=== PATIENT | female | born 1965 | race Caucasian/White ===

== ENCOUNTER 2016-12-06 14:31 | Inpatient (IN) | payer OTHER ==
[2016-12-06] MEDS ORDERED: IOPAMIDOL 370 (76%) IV.SOLN 150 ML IV ONE (14:32)
[2016-12-06] MEDS ORDERED: ONDANSETRON 4 MG/2ML 2 ML VIAL ONE (15:25)
[2016-12-06] MEDS ORDERED: LACTATED RINGERS 1,000 ML ONE (15:25)
[2016-12-06 15:48] LABS: ALB/GLOB RATIO 1.2 (>1.0); ALBUMIN 4.5 gm/dL (3.5-5.7)
[2016-12-06 15:49] LABS: ABSOLUTE NEUTROPHIL COUNT 9.4 K/mm3 (1.8-7.7); BASO % 0.2 % (0.2-1.0); EOS % 0.2 % (0.9-2.9); HEMATOCRIT 46.9 % (37.0-47.0); HEMOGLOBIN 13.9 gm/l (12.0-16.0); IMM NEUT # 0.1 K/mm3 (0-0.2); IMM NEUT% 1.1 % (0-1); LYMPH # 1.4 (1.0-4.8); LYMPH % 11.7 % (15-45); MEAN CELL VOLUME 87.5 fl (81.0-99.0); MEAN CORPUSCULAR HEMOGLOBIN 25.9 pg (27.0-31.0); MEAN CORPUSCULAR HGB CONC 29.6 g/dl (33.0-37.0); MEAN PLATELET VOLUME 11.8 fl (7.4-10.4); MONO # 1.1 (0.0-0.8); MONO % 9.1 % (4-12); NEUT % 77.7 % (43-75); PLATELET COUNT 153 K/mm3 (130-400); RED CELL DISTRIBUTION WIDTH 18.3 % (11.5-14.5)
--- NOTE | 2016-12-06 16:12 | CT ---
Exam: CT abdomen and pelvis with contrast COMPARISON: CT chest 07/17/2016, MRI 02/17/2016, CT chest 11/03/2015 INDICATION: Upper abdominal pain, nausea, vomiting and diarrhea for 2 to 3 days. TECHNIQUE: CT examination of the abdomen and pelvis was obtained following the administration of 125 mL Isovue-370 intravenous contrast. FINDINGS: Inflammatory changes are seen about the pancreas, compatible with acute pancreatitis. The pancreas enhances normally, and there is no main pancreatic ductal dilation. There is marked hepatic steatosis. Gallbladder is present. There is no intra or extra hepatic biliary ductal dilation. Bilateral adrenal masses are again appreciated, which were confirmed as adrenal adenomas on prior imaging. Spleen is normal in size. Kidneys are within normal limits. Fibroid uterus. There is no adnexal mass. There is no pelvic lymphadenopathy or fluid collection. There is no bowel obstruction or free air. Lung bases are clear. No worrisome lytic or blastic osseous lesion is identified. Post surgical changes related to prior lipoma resection are again noted within the posterior left chest wall. IMPRESSION: 1. Acute pancreatitis. No evidence of pancreatic necrosis. 2. Hepatic steatosis. 3. Fibroid uterus. 4. Adrenal adenomas. Report called to Dr. Head 1603 hours 12/06/2016.
[2016-12-06 16:44] LABS: PLATELET ESTIMATE NORMAL (NORMAL)
[2016-12-06 17:20] VITALS: BMI 40.5
[2016-12-06] MEDS ORDERED: HYDROMORPHONE HCL 1 MG/ML SYRINGE IV ONE (17:53)
[2016-12-06] MEDS ORDERED: BLISTEX LIPSTICK 1 EACH TP PRN (17:53)
[2016-12-06] MEDS ORDERED: SODIUM CHLORIDE 0.9% 100 ML IV PRN (17:53)
[2016-12-06] MEDS ORDERED: KETOROLAC TROMETHAMINE 15 MG/ML VIAL IV PRN (17:53)
[2016-12-06] MEDS ORDERED: MENTHOL/CETYLPYRD 1 EACH LOZENGE PO PRN (17:53)
[2016-12-06] MEDS ORDERED: INSULIN ASPART (DOSE) 100 UNITS/1 ML SUB-Q PRN (17:57)
[2016-12-06] MEDS ORDERED: ENOXAPARIN SODIUM 40 MG/0.4 ML SYRINGE SUB-Q SCH (18:00)
[2016-12-06] MEDS ORDERED: SODIUM CHLORIDE 0.9% 1,000 ML ONE (18:09)
[2016-12-06] MEDS ORDERED: PUMP TUBING ONE ×2 (18:09→19:19)
[2016-12-06] MEDS: SODIUM CHLORIDE 0.9% 2,000 ML IV SCH ×2 (18:13→20:15)
[2016-12-06] MEDS ORDERED: IV START KIT ONE (19:23)
[2016-12-06] MEDS: INSULIN REGULAR HUMAN (DOSE) 100 UNITS in SODIUM CHLORIDE 0.9% 99 ML IV PRN ×3 (19:30→21:00)
[2016-12-06] MEDS ORDERED: ONDANSETRON 4 MG/2ML 2 ML VIAL IV PRN (19:30)
[2016-12-06] MEDS: ENOXAPARIN SODIUM 40 MG/0.4 ML SYRINGE SUB-Q SCH (19:51)
[2016-12-06] MEDS: PANTOPRAZOLE SODIUM 40 MG VIAL IV SCH (19:51)
[2016-12-06] MEDS ORDERED: HYDROMORPHONE HCL 0.5 MG/0.5 ML SYRINGE IV PRN (20:00)
[2016-12-06] MEDS ORDERED: POTASSIUM CHLORIDE 40 MEQ in SODIUM CHLORIDE 0.9% 500 ML IV ONE (20:00)
[2016-12-06 20:16] LABS: ACETONE,SERUM 3+ (NEGATIVE)
[2016-12-06] MEDS: HYDROMORPHONE HCL 1 MG/ML SYRINGE IV PRN (20:30)
--- NOTE | 2016-12-06 20:44 | US ---
LIMITED ABDOMINAL ULTRASOUND HISTORY: Pancreatitis. Limited sonography of the right upper quadrant performed. Imaging limited by patient body habitus and discomfort. FINDINGS: GALLBLADDER LENGTH: 7.0 cm. GALLBLADDER WALL THICKNESS: 1.4 mm. GALLBLADDER CONTENT: No stones or sludge identified. PATIENT TENDERNESS: Present. COMMON BILE DUCT CALIBER: 8 mm. REGIONAL FREE FLUID: None. IMPRESSION: No gross gallbladder wall thickening or cholelithiasis. Mild biliary dilatation. Findings discussed with Dr. Danielson of the hospitalist clinical service on 12/06/2016 at 2040 hours.
[2016-12-06] MEDS: METOPROLOL TARTRATE 1 MG/ML 5ML VIAL IV SCH (21:15)
[2016-12-06 21:37] LABS: CALCIUM 9.7 mg/dL (8.6-10.3)
[2016-12-06] MEDS: SODIUM CHLORIDE 0.9% 1,000 ML IV SCH (23:03)
--- NOTE | 2016-12-06 23:45 | HP ---
YFN GOMEZ [id number] DATE OF ADMISSION: 12/06/2016 CHIEF COMPLAINT: Abdominal pain. HISTORY OF PRESENT ILLNESS: The patient is a 51-year-old female who was at her baseline status until about three or four days ago when she developed some diarrhea, nausea and abdominal pain. She had not had fevers, but was quite lethargic and had some difficulty with thinking. She may have had some vomiting that could have been cough related. She had had ongoing decreased responsiveness, with ongoing abdominal pain, so was brought to the ER. In the ER she was noted to have a markedly elevated lipase and CT suggested a diagnosis of pancreatitis, as well as labs showing a glucose over 800. She does not have a prior history of pancreatitis nor of diabetes. PAST MEDICAL HISTORY: 1. She has a history of diastolic CHF, with preserved ejection fraction on echo. She underwent a stress test which had suggested a vulnerable myocardium, but cath had shown clean arteries. 2. She did have some pulmonary hypertension noted. 3. She has had a history of classic migraines and her family reports that she drinks a lot of tea. 4. She has a history of eczema. 5. History of hypertension, which is a newer diagnosis. 6. History of bilateral adrenal adenomas, which was checked-out with an MRI and felt to be benign. 7. Previous history of vertigo. 8. She has had a number of lipomas removed and has had a prolonged course after removal of an eleven pound lipoma last year, and is still healing by secondary intention on her back. 9. She is G-0, P-1, with a miscarriage. PAST SURGICAL HISTORY: 1. Back lipoma excision in June of 2016, with complicated healing. 2. She has had a cardiac cath. 3. Other lipoma removals in the past. 4. Tonsillectomy. ALLERGIES: Listed as: 1. Tape. 2. Chocolate. 3. Oxycodone. 4. Penicillin. 5. Walnuts. 6. Propranolol. MEDICATIONS: She has medications listed as: 1. Acetaminophen 325-650 mg by mouth every four hours as needed. 2. Amlodipine 5 mg daily. 3. Carvedilol 2.5 mg by mouth daily. 4. Flexeril 5 mg by mouth every four hours as needed. 5. Furosemide 80 mg by mouth twice a day. 6. Gabapentin 200 mg by mouth three times a day. 7. [place] 10/325 one by mouth every four hours as needed. 8. Imodium 2 mg by mouth as needed. 9. Losartan 100 mg by mouth daily. 10. Nystatin twice a day. 11. Potassium chloride 20 mEq by mouth daily. 12. Promethazine 25 mg by mouth every four hours as needed. 13. Rizatriptan 10 mg by mouth daily as needed for migraine. 14. Trazodone 50-100 mg by mouth at bedtime as needed. 15. Kenalog twice a day as needed. SOCIAL HISTORY: She lives in [place]. She has a trailer and lives by herself. She is disabled, and has no kids. No smoking and no alcohol. She is Restorationist, but not affiliated with any particular moravian. Hobbies include rabbits, she has four of them at home, and a cat. FAMILY HISTORY: Father in his 70's, no data. Mom is living at 74. REVIEW OF SYSTEMS: Review of systems was done unfortunately after receiving pain medicines, so this is taken from the family. HEENT - eyes, no complaints. Ears, okay, no complaints. Nose is okay. Mouth has been dry. She has had a phlegmy cough noted recently. Heart - no complaints, but does have a history of CHF, has been stable in this regard. GI - stomach has been hurting some. She has had the diarrhea and has been taking a probiotic recently. - no urinary complaints. Breasts - no breast complaints. Extremities - arms can hurt some due to the lipomas. Her legs can also be sore due to the very large lipomas. She uses a walker and the family describes that she is very inactive. Neurologic - no history of central nervous system problems, seizures or strokes. Her brother indicates that she has had some word difficulty recently in the last couple of days. Mood possibly has been depressed. Skin - healing has been prolonged on her back, but is actually now much improved. CODE STATUS: She does not have a POLST form. PHYSICAL EXAMINATION: GENERAL: An obese female, uncomfortable, and then later is quite sleepy after Dilaudid. VITAL SIGNS: Temperature is 99.0. Pulse 94. Respirations 17. Blood pressure 138/91. Saturation 100% on room air. HEENT: Head is normocephalic. Upper neck and posterior head with some lipomas. Eyes, pupils are small. Nose is unremarkable, no discharge. Oropharynx is unremarkable. Dentition grossly unremarkable. NECK: With very large lipomas noted. LUNGS: Generally clear to auscultation bilaterally. Upper back with large lipomas as well and a healing site from previous resection, about 6 cm on each side of a symmetric triangle. HEART: Regular rate and rhythm, distant. BREASTS: Exam is deferred. ABDOMEN: Obese, but bowel sounds are very quiet. There is no rebound or guarding, but patient has received pain medicine, so it is hard to evaluate her abdomen. GENITOURINARY: Exam is deferred. BACK: With large lipomas as mentioned. EXTREMITIES: No cyanosis, clubbing or edema. Perfusion appears to be good. Capillary refill is less than three seconds. Extremities are warm. NEUROLOGIC: The patient is sedated after medication, but no focal deficits are evident. LABS: White count 12.1, hemoglobin 13.9 and platelets 153. Lactate 3.2, sodium 129, potassium is 5.0, chloride 87, C02 of 15, bicarbonate 38, creatinine 1.5, glucose 871, calcium 11.0, bilirubin 0.4, AST of 21, ALT of 41, alkaline phosphatase 90, albumin 4.5, globulin 3.8 and lipase 1,780. IMAGING: Acute pancreatitis. No necrosis. Hepatic steatosis. Fibroid uterus. Adrenal adenomas. ASSESSMENT/PLAN: 1. Acute pancreatitis, etiology unclear. Will be monitoring lipids, check ultrasound and keep NPO, with IV fluids. Monitor electrolytes and lipase. 2. New diagnosis of diabetes, with suspected hyperosmolar state and associated hyponatremia. Will be checking A1C, C-peptide and a follow-up on electrolytes tonight. Plan CBGs hourly, with IV insulin. 3. Hypertension. Will monitor. Consider IV medications. She is unable to take PO at this time. 4. Previous history of migraines. The family reports regular caffeine use. Will be monitoring. Could consider sublingual med if desired, but at this point does not appear to be an issue. 5. Marked lipomatosis, with prolonged healing after surgical resection on her back. Will be monitoring and anticipate a new dressing placed. 6. History of diastolic dysfunction, with a preserved ejection fraction. Will try to continue on her Lasix and her Beta alex, switching to IV metoprolol. 7. Deconditioning. Will be checking with physical therapy and occupational therapy. 8. Venous thrombosis prophylaxis. Anticipate a dose of enoxaparin dosed for a BMI greater than 40. 9. Code status; anticipate full. cc: Dr. Douglas Patel, [employer] [facility]
[2016-12-07] MEDS ORDERED: D5 1/2NS with 20 mEq KCL 1,000 ML IV SCH ×2 (02:15→07:42)
[2016-12-07] MEDS: HYDROMORPHONE HCL 1 MG/ML SYRINGE IV PRN ×5 (02:19→17:47)
[2016-12-07] MEDS: METOPROLOL TARTRATE 1 MG/ML 5ML VIAL IV SCH ×4 (03:04→21:31)
[2016-12-07] MEDS: SODIUM CHLORIDE 0.9% 1,000 ML IV SCH (05:17)
[2016-12-07 05:44] LABS: BASO % 0.1 % (0.2-1.0); HEMATOCRIT 39.8 % (37.0-47.0); HEMOGLOBIN 12.4 gm/l (12.0-16.0); IMM NEUT # 0.1 K/mm3 (0-0.2); LYMPH # 1.1 (1.0-4.8); LYMPH % 8.3 % (15-45); MEAN CORPUSCULAR HEMOGLOBIN 26.2 pg (27.0-31.0); MEAN CORPUSCULAR HGB CONC 31.2 g/dl (33.0-37.0); MEAN PLATELET VOLUME 11.3 fl (7.4-10.4); MONO # 1.3 (0.0-0.8); MONO % 9.7 % (4-12); NEUT % 80.9 % (43-75); PLATELET COUNT 149 K/mm3 (130-400); RED CELL DISTRIBUTION WIDTH 18.5 % (11.5-14.5)
[2016-12-07 05:53] LABS: ALB/GLOB RATIO 1.2 (>1.0); ALBUMIN 3.5 gm/dL (3.5-5.7); CALCIUM 9.4 mg/dL (8.6-10.3); CHOLESTEROL RISK RATIO 4.7 (3.7-5.6); MAGNESIUM 2.2 mg/dL (1.9-2.7)
--- NOTE | 2016-12-07 07:08 | PDOC43 ---
- Subjective Chief Complaint: Pancreatitis, new dx DM Patient opens eyes, answers some, but tends to drift off before able to answer. Last dose of pain medication about 90-120 min ago. - Objective Vital Signs Temperature 98.4 F 12/07/16 03:00 Pulse Rate 102 12/07/16 05:00 Respiratory Rate 19 12/07/16 05:00 Blood Pressure 137/64 12/07/16 05:00 O2 Saturation by Pulse Oximetry 95 12/07/16 05:00 Oxygen Delivery Method Room Air Oxygen Flow Rate 0 Vital Signs Last 12 Hours Temp Pulse Resp BP Pulse Ox 12/07/16 05:00 102 19 137/64 95 12/07/16 04:00 99 18 119/60 93 12/07/16 03:00 98.4 F 104 17 124/57 93 12/07/16 02:00 104 21 104/55 94 12/07/16 01:00 105 22 103/55 96 12/07/16 00:00 104 19 100/54 98 12/06/16 23:00 98.3 F 103 17 101/49 95 12/06/16 22:00 103 19 104/56 95 12/06/16 21:00 98.3 F 103 17 103/57 95 12/06/16 20:00 104 20 131/75 95 12/06/16 19:30 98.0 F 103 19 124/62 96 12/06/16 19:00 19 Intake and Output 12/05/16 12/06/16 12/07/16 23:59 23:59 23:59 Intake Total 4416 1254 Output Total 600 370 Balance 3816 884 Intake & Output 12/06/16 12/06/16 12/07/16 15:59 23:59 07:59 Intake Total 4416 1254 Output Total 600 370 Balance 3816 884 Weight 95.2 kg 98 kg Intake: IV Fluids 2416 1254 ED IV Intake 1999 Output: Void 600 Alejandra Output 370 Other: Number of Voids 1 General: Other (Opens eyes on stimulation, but tends to drift off.) Lungs: Clear to Auscultation Bilaterally, Normal Air Movement Cardiovascular: Other (tachycardic, sl sys murmur) Abdomen: Hypoactive Bowel Sounds (marked obese abdomen. Seems tender to palpation, but difficult to assess.), Other Extremities: Normal Cap Refill, Normal Pulses, No Edema Skin: Normal Color Wound: Dressing Clean/Dry/Intact (on upper back) Neurological: Other (opens eyes to verbal, tactile stimulation, but tends to drift off rapidly, generally doesn't answer questions. Was able to give name.) Laboratory 12/07/16 05:15 12/07/16 05:15 12/07/16 12/07/16 12/07/16 05:49 05:15 05:07 MCH 26.2 L MCHC 31.2 L RDW 18.5 H Anion Gap 21 H BUN 39 H Estimated GFR 29 L POC Capillary Glucose 323 H 320 H Triglycerides 344 H VLDL Cholesterol 69 H HDL Cholesterol 39 L Amylase 555 H Lipase 2317 H 12/07/16 12/07/16 12/07/16 04:01 03:00 01:45 MCH MCHC RDW Anion Gap BUN Estimated GFR POC Capillary Glucose 280 H 292 H 260 H Triglycerides VLDL Cholesterol HDL Cholesterol Amylase Lipase 12/07/16 12/06/16 12/06/16 00:57 23:58 23:00 MCH MCHC RDW Anion Gap BUN Estimated GFR POC Capillary Glucose 291 H 346 H 417 H Triglycerides VLDL Cholesterol HDL Cholesterol Amylase Lipase 12/06/16 12/06/16 12/06/16 21:59 21:10 21:05 MCH MCHC RDW Anion Gap 30 H BUN 37 H Estimated GFR 39 L POC Capillary Glucose 536 H* 584 H* Triglycerides VLDL Cholesterol HDL Cholesterol Amylase Lipase 12/06/16 12/06/16 12/06/16 20:11 19:27 18:01 MCH MCHC RDW Anion Gap BUN Estimated GFR POC Capillary Glucose > 600 H* > 600 H* > 600 H* Triglycerides VLDL Cholesterol HDL Cholesterol Amylase Lipase Current Medications: Current meds reviewed in EMR. Active Medications Cardio Furosemide (Lasix) 40 mg IV [id number] [facility] Metoprolol Tartrate (Lopressor) 2.5 mg IV Q6H [facility] Last Admin: 12/07/16 03:04 Dose: 2.5 mg Endocrine Insulin Human Regular 100 (units/ Sodium Chloride) 100 mls @ 1 mls/hr IV TITRATE PRN; Protocol; 1 UNITS/HR PRN Reason: Hyperglycemia Last Titration: 12/07/16 05:51 Dose: 7 units/hr FEN Potassium Chloride/Dextrose/Sod Cl (D51/2ns With 20 Meq Kcl) 1,000 mls @ 125 mls/hr IV .Q8H [facility] Last Admin: 12/07/16 04:28 Dose: 125 mls/hr GI Pantoprazole Sodium (Protonix) 40 mg IV Q24H [facility] Last Admin: 12/06/16 19:51 Dose: 40 mg Pain Hydromorphone HCl (Dilaudid) 0.5 - 1 mg IV Q2H PRN PRN Reason: Pain Last Admin: 12/07/16 05:52 Dose: 1 mg Hydromorphone HCl (Dilaudid) 0.5 - 1 mg IV Q2H PRN PRN Reason: Pain Ketorolac Tromethamine (Toradol) 15 mg IV Q6H PRN PRN Reason: Pain PRN Benzocaine/Menthol (Cepacol) 1 each PO PRN PRN PRN Reason: Sore Throat Ondansetron HCl (Zofran) 4 mg IV Q4H PRN PRN Reason: Nausea/Vomiting Petrolatum/Paraffin/Mineral Oil (Blistex) 1 each TP PRN PRN PRN Reason: Dry and/or chapped lips VTE Enoxaparin Sodium (Lovenox) 40 mg SUB-Q Q12H [facility] Last Admin: 12/06/16 19:51 Dose: 40 mg - Problems: Assessment/Plan (1) Pancreatitis Qualifiers: Chronicity: acute Pancreatitis type: unspecified pancreatitis type Acute pancreatitis complication: no infection or necrosis Qualifier Code: ( K85.90) Acute pancreatitis without necrosis or infection, unspecified Status : AcuteAssessment/Plan: Idiopathic pancreatitis, with increasing Lipase, WBC. Lipase 1780->2317 WBC 12.1->13.6 Lactate 3.2->2.0 Pain meds (will try reduction in dose as she is quite sleepy), IVF, nausea meds TG 344, so not especially elevated. No alcohol hx. U/S did not show significant biliary abnormality. (2) Diabetes mellitus, new onset Status: AcuteAssessment/Plan: With ketoacidosis (Acetone +), bicarbonate now improving some. A1c pending. C peptide pending. Suspect ketoacidosis in setting of underlying insulin resistance. Continue IV insulin, IVF (D5 was started as BG went under 250, but with continued elevation, will increase insulin). Diabetic education when more awake, alert. (3) ALBERT (acute kidney injury) Status: AcuteAssessment/Plan: Cr 1.4->1.8 despite hydration. Lower BPs at midnight, beta alex was temporarily held, now improved BP. Continue IVF. Holding losartan. Stopped ketorolac. Recheck in am. Monitor I/O. (4) Lipomatosis Status: ChronicAssessment/Plan: Patient with chronic marked lipomatosis. Delayed healing by secondary intention on back. VTE Prophylaxis: enoxaparin Disposition: Continue in IMCU, needing IV insulin. Additional Comments: Cardio - Tachycardia, attrib to hypovolemia and/or held beta alex; plan resume IV metoprolol Pt with hx dCHF, check BNP Derm - wound healing on upper back (site of previous lipoma excision), dressing applied, appears stable Endocrine - Ketoacidosis with marked insulin resistance suggested. Increasing to high dose insulin drip. planning further diabetic education (new dx) TSH normal; Lipids with TG 344. FEN - on D5 1/2NS with 20 K at 125; Anticipate add'l NS bolus. NPO BMI 42.2, c/w morbid obesity; lipomatosis contributing Ca 11.0->9.4 GI - lipase increased. Reason for pancreatitis not clear. TG not jl elevated. U /S not remarkable, LFTs not remarkable NPO currently Hx diarrhea, unclear if significant or poss related to pancreatic exocrine failure. Stool studies pending (fecal fat, etc) Heme - Hb 13.9->12.4, attributed to hydration. Neuro/Psych - appears sedated; attributed to pain meds; will decrease Pt did have some confusion preceding this, attributed to marked hyperglycemia. Pulm - satting well on RA Renal - Cr 1.4->1.8 Continue IVF BP has been good Avoid losartan, NSAIDs 370 out this shift via Alejandra; anticipate add'l 1 L NS VTE - on enoxaparin
[2016-12-07] MEDS: INSULIN REGULAR HUMAN (DOSE) 100 UNITS in SODIUM CHLORIDE 0.9% 99 ML IV PRN ×3 (07:12→20:00)
[2016-12-07] MEDS: ENOXAPARIN SODIUM 40 MG/0.4 ML SYRINGE SUB-Q SCH ×2 (07:14→19:22)
[2016-12-07] MEDS ORDERED: SODIUM CHLORIDE 0.9% 1,000 ML IV SCH (07:45)
[2016-12-07] MEDS: FUROSEMIDE 40 MG/4 ML VIAL IV SCH ×2 (08:56→15:39)
[2016-12-07 13:05] LABS: A1C-GLYCOHEMOGLOBIN 1.4 g/dl; HEMOGLOBIN-GLYCO 11.4 g/dl
[2016-12-07] MEDS: D5 1/2NS with 20 mEq KCL 1,000 ML IV SCH ×2 (13:05→23:51)
[2016-12-07 16:09] LABS: ABSOLUTE NEUTROPHIL COUNT 10.1 K/mm3 (1.8-7.7); BASO % 0.1 % (0.2-1.0); HEMATOCRIT 39.5 % (37.0-47.0); HEMOGLOBIN 12.3 gm/l (12.0-16.0); IMM NEUT # 0.1 K/mm3 (0-0.2); IMM NEUT% 0.7 % (0-1); LYMPH # 0.9 (1.0-4.8); MEAN CELL VOLUME 84.4 fl (81.0-99.0); MEAN CORPUSCULAR HEMOGLOBIN 26.3 pg (27.0-31.0); MEAN CORPUSCULAR HGB CONC 31.1 g/dl (33.0-37.0); MEAN PLATELET VOLUME 10.6 fl (7.4-10.4); MONO # 1.2 (0.0-0.8); MONO % 9.4 % (4-12); NEUT % 82.8 % (43-75); PLATELET COUNT 126 K/mm3 (130-400); RED CELL DISTRIBUTION WIDTH 19.5 % (11.5-14.5)
[2016-12-07 16:39] LABS: ALB/GLOB RATIO 1.1 (>1.0); ALBUMIN 3.5 gm/dL (3.5-5.7); CALCIUM 9.5 mg/dL (8.6-10.3)
[2016-12-07] MEDS: PANTOPRAZOLE SODIUM 40 MG VIAL IV SCH (17:47)
[2016-12-07] MEDS: HYDROMORPHONE HCL 0.5 MG/0.5 ML SYRINGE IV PRN (21:31)
[2016-12-08] MEDS: HYDROMORPHONE HCL 1 MG/ML SYRINGE IV PRN ×2 (01:06→05:40)
[2016-12-08] MEDS: METOPROLOL TARTRATE 1 MG/ML 5ML VIAL IV SCH ×2 (03:00→08:35)
[2016-12-08 05:48] LABS: IMM NEUT # 0.1 K/mm3 (0-0.2); IMM NEUT% 0.7 % (0-1); LYMPH % 8.7 % (15-45)
[2016-12-08 05:57] LABS: ABSOLUTE NEUTROPHIL COUNT 6.5 K/mm3 (1.8-7.7); EOS % 0.4 % (0.9-2.9); HEMATOCRIT 36.9 % (37.0-47.0); HEMOGLOBIN 11.3 gm/l (12.0-16.0); LYMPH # 0.7 (1.0-4.8); MEAN CELL VOLUME 85.4 fl (81.0-99.0); MEAN CORPUSCULAR HEMOGLOBIN 26.2 pg (27.0-31.0); MEAN CORPUSCULAR HGB CONC 30.6 g/dl (33.0-37.0); MEAN PLATELET VOLUME 11.5 fl (7.4-10.4); MONO # 0.8 (0.0-0.8); MONO % 9.6 % (4-12); NEUT % 80.6 % (43-75); PLATELET COUNT 90 K/mm3 (130-400); RED CELL DISTRIBUTION WIDTH 20.1 % (11.5-14.5)
[2016-12-08 06:10] LABS: ALB/GLOB RATIO 1.1 (>1.0); ALBUMIN 3.1 gm/dL (3.5-5.7); CALCIUM 9.3 mg/dL (8.6-10.3); MAGNESIUM 2.2 mg/dL (1.9-2.7)
[2016-12-08 06:36] LABS: PLATELET ESTIMATE DECREASED (NORMAL)
[2016-12-08 06:37] LABS: ANISOCYTOSIS 2+
[2016-12-08] MEDS: ENOXAPARIN SODIUM 40 MG/0.4 ML SYRINGE SUB-Q SCH (07:20)
[2016-12-08] MEDS: D5 1/2NS with 20 mEq KCL 1,000 ML IV SCH ×2 (08:34→18:08)
[2016-12-08] MEDS: FUROSEMIDE 40 MG/4 ML VIAL IV SCH (08:35)
[2016-12-08] MEDS: HYDROMORPHONE HCL 0.5 MG/0.5 ML SYRINGE IV PRN ×4 (08:35→23:53)
[2016-12-08 10:42] LABS: SPECIFIC GRAVITY 1.015 (1.001-1.030); URINE APPEARANCE HAZY; URINE BILIRUBIN NEGATIVE (NEGATIVE); URINE BLOOD 3+ (NEGATIVE); URINE COLOR YELLOW; URINE GLUCOSE (UA) NEGATIVE (NEGATIVE); URINE LEUKOCYTE ESTERASE NEGATIVE (NEGATIVE); URINE NITRITE NEGATIVE (NEGATIVE); URINE PROTEIN NEGATIVE (NEGATIVE); URINE UROBILINOGEN NORMAL (0-1 mg/dl)
[2016-12-08 10:53] LABS: URINE AMORPHOUS SEDIMENT FEW; URINE BACTERIA FEW; URINE WBC RARE /hpf
--- NOTE | 2016-12-08 11:31 | PDOC43 ---
- Subjective Chief Complaint: Pancreatitis, new dx DM Alert, responds to questions slowly, occasionally moaning or calling out. Indicates continued abdominal pain, denies chest pain or dyspnea. - Objective Vital Signs Temperature 99.7 F 12/08/16 10:37 Pulse Rate 98 12/08/16 10:37 Respiratory Rate 15 12/08/16 10:40 Blood Pressure 113/64 12/08/16 10:37 O2 Saturation by Pulse Oximetry 96 12/08/16 10:37 Oxygen Delivery Method Room Air Oxygen Flow Rate 0 Intake and Output 12/07/16 12/08/16 12/09/16 06:59 06:59 06:59 Intake Total 5670 3695 Output Total 970 1325 Balance 4700 2370 General: Alert, Mild Distress, No Oriented x3 HEENT: Mucous membr. moist/pink Lungs: Clear to Auscultation Bilaterally Cardiovascular: Regular Rate and Rhythm, Murmur (2/6) Abdomen: Soft, Tenderness, Hypoactive Bowel Sounds, No Masses Genitourinary: Indwelling Urinary Cath (urine cloudy) Extremities: Normal Pulses, No Edema Wound: Dressing Clean/Dry/Intact (on upper back) Psych/Mental Status: Anxious Laboratory 12/08/16 05:30 12/08/16 05:30 12/08/16 12/08/16 12/08/16 10:45 08:39 07:19 MCH MCHC RDW Anion Gap BUN Estimated GFR POC Capillary Glucose 193 H 192 H 221 H Hemoglobin A1c AST Total Protein Albumin Amylase Lipase 12/08/16 12/08/16 12/08/16 05:49 05:30 03:50 MCH 26.2 L MCHC 30.6 L RDW 20.1 H Anion Gap BUN 34 H Estimated GFR 52 L POC Capillary Glucose 190 H 206 H Hemoglobin A1c AST 69 H Total Protein 5.8 L Albumin 3.1 L Amylase 232 H Lipase 606 H 12/08/16 12/07/16 12/07/16 01:47 23:07 22:00 MCH MCHC RDW Anion Gap BUN Estimated GFR POC Capillary Glucose 208 H 238 H 200 H Hemoglobin A1c AST Total Protein Albumin Amylase Lipase 12/07/16 12/07/16 12/07/16 21:08 19:57 19:06 MCH MCHC RDW Anion Gap BUN Estimated GFR POC Capillary Glucose 231 H 235 H 241 H Hemoglobin A1c AST Total Protein Albumin Amylase Lipase 12/07/16 12/07/16 12/07/16 17:51 16:55 16:02 MCH MCHC RDW Anion Gap BUN Estimated GFR POC Capillary Glucose 232 H 269 H 216 H Hemoglobin A1c AST Total Protein Albumin Amylase Lipase 12/07/16 12/07/16 12/07/16 16:00 15:12 14:09 MCH 26.3 L MCHC 31.1 L RDW 19.5 H Anion Gap 17 H BUN 37 H Estimated GFR 34 L POC Capillary Glucose 237 H 252 H Hemoglobin A1c AST 63 H Total Protein Albumin Amylase Lipase 1514 H 12/07/16 12/07/16 12/07/16 13:03 12:02 11:04 MCH MCHC RDW Anion Gap BUN Estimated GFR POC Capillary Glucose 290 H 247 H 231 H Hemoglobin A1c AST Total Protein Albumin Amylase Lipase 12/07/16 05:15 MCH MCHC RDW Anion Gap BUN Estimated GFR POC Capillary Glucose Hemoglobin A1c 13.7 H AST Total Protein Albumin Amylase Lipase Current Medications: Current meds reviewed in EMR. - Problems: Assessment/Plan (1) Pancreatitis Qualifiers: Chronicity: acute Pancreatitis type: idiopathic Acute pancreatitis complication: no infection or necrosis Qualifier Code: (K85.00) Idiopathic acute pancreatitis without necrosis or infection Status: AcuteAssessment/ Plan: Acute idiopathic pancreatitis with SIRS but not sepsis (no infection) present on admit. Lipase is now improving but patient still symptomatic. Continue sips/ice chips only. (2) ALBERT (acute kidney injury) Status: AcuteAssessment/Plan: Due to acute pancreatitis and DKA, improving with hydration. (3) Diabetes mellitus, new onset Status: ChronicAssessment/Plan: With acute diabetic ketoacidosis present on admit. Chronic uncontrolled diabetes with A1c of 13.7% High insulin resistance requiring 5-6 units per hour. Not clear if there is endocrine failure of the pancreas due to pancreatitis, C- peptide is pending. Start lantus insulin this p.m. and transition to basal/bolus. (4) Anemia Status: AcuteAssessment/Plan: Mild due to IVF dilution. (5) Morbid obesity with BMI of 40.0-44.9, adult Status: ChronicAssessment/Plan: Complicates care of diabetes, heart failure, and contibutes to poor wound healing from lipoma excision. (6) Heart failure Qualifiers: Heart failure type: diastolic Heart failure chronicity: chronic Qualifier Code: (I50.32) Chronic diastolic (congestive) heart failure Status : ChronicAssessment/Plan: Chronic diastolic failure with pulmonary HTN (not cor pulmaonale) stable without exacerbation at this time. (7) HTN (hypertension) Qualifiers: Hypertension type: essential hypertension Qualifier Code: (I10) Essential (primary) hypertension Status: ChronicAssessment/Plan: Well controlled, transition back to oral meds. (8) Acute metabolic encephalopathy Status: AcuteAssessment/Plan: Due to acute pancreatitis and DKA, present on admit and slowly improving. VTE Prophylaxis: enoxaparin Disposition: Continue in IMCU, transition to basal/bolus insulin
[2016-12-08] MEDS: INSULIN REGULAR HUMAN (DOSE) 100 UNITS in SODIUM CHLORIDE 0.9% 99 ML IV PRN (15:29)
[2016-12-08] MEDS: FUROSEMIDE 40 MG TABLET PO SCH (15:30)
[2016-12-08] MEDS: PANTOPRAZOLE SODIUM 40 MG VIAL IV SCH (17:38)
[2016-12-08] MEDS: INSULIN ASPART (DOSE) 100 UNITS/1 ML SUB-Q SCH ×2 (17:42→23:52)
[2016-12-08] MEDS: INSULIN GLARGINE (DOSE) 100 UNITS/ML UNIT SUB-Q SCH (20:17)
[2016-12-08] MEDS: CARVEDILOL 12.5 MG TABLET PO SCH (21:15)
[2016-12-09] MEDS ORDERED: POTASSIUM CHLORIDE 20 MEQ in SODIUM CHLORIDE 0.45% 1,000 ML IV SCH (02:07)
[2016-12-09] MEDS: INSULIN ASPART (DOSE) 100 UNITS/1 ML SUB-Q SCH ×4 (02:16→17:36)
[2016-12-09] MEDS ORDERED: SODIUM CHLOR 0.45%/KCL 20 MEQ 1,000 ML ONE (02:17)
[2016-12-09] MEDS: SODIUM CHLOR 0.45%/KCL 20 MEQ 1,000 ML IV SCH ×3 (02:49→23:30)
[2016-12-09 06:34] LABS: CALCIUM 9.3 mg/dL (8.6-10.3)
--- NOTE | 2016-12-09 08:13 | PDOC43 ---
- Subjective Chief Complaint: Pancreatitis, new dx DM Awake and looking around, asks for water but otherwise does not answer questions. - Objective Vital Signs Temperature 99 F 12/09/16 03:00 Pulse Rate 91 12/09/16 03:00 Respiratory Rate 20 12/09/16 03:00 Blood Pressure 128/56 12/09/16 03:00 O2 Saturation by Pulse Oximetry 94 12/09/16 03:00 Oxygen Delivery Method Room Air Oxygen Flow Rate 0 Intake and Output 12/08/16 12/09/16 12/10/16 06:59 06:59 06:59 Intake Total 3695 2839 Output Total 1325 3050 Balance 2370 -211 General: Alert, Mild Distress, No Oriented x3, No Cooperative Lungs: Clear to Auscultation Bilaterally Cardiovascular: Regular Rate and Rhythm, Murmur (2/6) Abdomen: Soft, Tenderness (grimaces with palpation but does not moan or report pain), Hypoactive Bowel Sounds, No Rebounding, No Involuntary Guarding, No Masses Genitourinary: Indwelling Urinary Cath Extremities: Normal Pulses, No Edema Neurological: Other (capable of speaking, said "water", but does not respond to questions.) Laboratory 12/08/16 05:30 12/09/16 05:30 12/09/16 12/09/16 12/09/16 05:30 05:18 01:58 BUN 26 H POC Capillary Glucose 113 H 399 H C-Peptide Lipase 172 H 12/08/16 12/08/16 12/08/16 23:44 20:08 17:41 BUN POC Capillary Glucose 462 H 326 H 142 H C-Peptide Lipase 12/08/16 12/08/16 12/08/16 13:00 10:45 08:39 BUN POC Capillary Glucose 221 H 193 H 192 H C-Peptide Lipase 12/06/16 18:58 BUN POC Capillary Glucose C-Peptide 0.7 L Lipase Current Medications: Current meds reviewed in EMR. - Problems: Assessment/Plan (1) Pancreatitis Qualifiers: Chronicity: acute Pancreatitis type: idiopathic Acute pancreatitis complication: no infection or necrosis Qualifier Code: (K85.00) Idiopathic acute pancreatitis without necrosis or infection Status: AcuteAssessment/ Plan: Acute idiopathic pancreatitis with SIRS but not sepsis (no infection) present on admit. Lipase is now improving. Advance diet slowly. (2) ALBERT (acute kidney injury) Status: AcuteAssessment/Plan: Due to acute pancreatitis and DKA, Resolved. (3) Diabetes mellitus, new onset Status: ChronicAssessment/Plan: With acute diabetic ketoacidosis present on admit. Chronic uncontrolled diabetes with A1c of 13.7% High insulin resistance requiring 5-6 units per hour. Some degree of endocrine failure of the pancreas due to pancreatitis present as C-peptide is mildly low. Started lantus insulin 3/3 p.m. and aspart correction doses, adjust as indicated. (4) Anemia Status: AcuteAssessment/Plan: Mild due to IVF dilution. (5) Morbid obesity with BMI of 40.0-44.9, adult Status: ChronicAssessment/Plan: Complicates care of diabetes, heart failure, and contributes to poor wound healing from lipoma excision. (6) Heart failure Qualifiers: Heart failure type: diastolic Heart failure chronicity: chronic Qualifier Code: (I50.32) Chronic diastolic (congestive) heart failure Status : ChronicAssessment/Plan: Chronic diastolic failure with pulmonary HTN (not cor pulmaonale) stable without exacerbation at this time. (7) HTN (hypertension) Qualifiers: Hypertension type: essential hypertension Qualifier Code: (I10) Essential (primary) hypertension Status: ChronicAssessment/Plan: Well controlled. (8) Acute metabolic encephalopathy Status: AcuteAssessment/Plan: Due to acute pancreatitis and DKA, present on admit and slowly improved but still not normal, check head CT today. VTE Prophylaxis: enoxaparin Disposition: Change to M/S status Additional Comments:
[2016-12-09] MEDS ORDERED: PROMETHAZINE HCL 25 MG TABLET PO PRN (08:16)
[2016-12-09] MEDS ORDERED: TRAZODONE HCL 50 MG TABLET PO PRN (08:16)
[2016-12-09] MEDS: FUROSEMIDE 40 MG TABLET PO SCH ×3 (08:44→15:18)
[2016-12-09] MEDS: GABAPENTIN 100 MG CAPSULE PO SCH ×3 (08:44→20:36)
[2016-12-09] MEDS: CARVEDILOL 12.5 MG TABLET PO SCH (08:44)
[2016-12-09] MEDS: POTASSIUM CHLORIDE 10 MEQ TAB.SR PO SCH ×2 (08:44→20:36)
[2016-12-09] MEDS: HYDROMORPHONE HCL 0.5 MG/0.5 ML SYRINGE IV PRN (08:45)
[2016-12-09] MEDS: AMLODIPINE BESYLATE 5 MG TABLET PO SCH (08:45)
--- NOTE | 2016-12-09 09:06 | CT ---
EXAMINATION:CT SCAN HEAD W/O CONTRAST. CLINICAL INDICATION:Altered mental status. COMPARISON:None TECHNIQUE: A Cranial CT was performed using a TosOLED-T multislice CT scanner. Axial images were acquired from just above the vertex through the skull base. 4 mm stacked axial, sagittal, and coronal reconstructed images were reviewed. FINDINGS: The CSF-containing spaces are within normal limits. The platt/white matter attenuation characteristics are within normal limits. No acute intracranial hemorrhage or extra-axial fluid collections are identified.:There is no mass effect or midline shift. The posterior fossa is unremarkable. The cerebellar pontine angle cisterns are normal and symmetric. The osseous structures are intact. The paranasal sinuses are unremarkable. The orbits and retrobulbar regions are unremarkable.:The mastoid sinuses are clear. The scalp and adjacent soft tissues are unremarkable. IMPRESSION: No acute intracranial abnormality is identified. The findings were uploaded to the electronic medical record for review at approximately 9:06 AM 12/09/2016
--- NOTE | 2016-12-09 11:13 | PDOC36 ---
Provider Note Subject: wound eval Note: concern from Nurse who is caring for pt today. noted that on her back one of her surgical scars reamins an open wound on left-mid upper back. I evaluated the wound, and because I have seen this pt in my outpt clinic, have had a change to see this wound before. The wound reamins an open wound with granulation base. has been cleaned today so no discharge seen. Compared to past exams in clinic this wound appears to be much improved, healing well. No surrounding erythema beyond baseline scarring discoloration that is chronic for her. pt is talkative and discusses her desires with me today. She appears at baseline mental status given her acute illness. She is cooperatove and able to assist in rolling herself for my exam of her back. Noted by nurse pt is max assist 2 persons and not able to get out of bed yet. order today to DC morfin was placed. I held this order and encourage pt to remain active as possible, work with PT and OT and would re-eval for morfin DC tomorrow.
[2016-12-09] MEDS: PANTOPRAZOLE SODIUM 40 MG VIAL IV SCH (17:12)
[2016-12-09] MEDS: HYDROCODONE BIT/ACETAMINOPHEN 10 MG/325 MG TAB PO PRN (17:12)
[2016-12-09] MEDS: CARVEDILOL 6.25 MG TABLET PO SCH (20:36)
[2016-12-09] MEDS: INSULIN GLARGINE (DOSE) 100 UNITS/ML UNIT SUB-Q SCH (20:37)
[2016-12-10] MEDS: INSULIN ASPART (DOSE) 100 UNITS/1 ML SUB-Q SCH ×6 (01:11→17:29)
[2016-12-10 06:32] LABS: CALCIUM 9.1 mg/dL (8.6-10.3)
[2016-12-10] MEDS: SODIUM CHLOR 0.45%/KCL 20 MEQ 1,000 ML IV SCH (08:12)
[2016-12-10] MEDS: FUROSEMIDE 40 MG TABLET PO SCH ×2 (09:45→15:48)
[2016-12-10] MEDS: CARVEDILOL 6.25 MG TABLET PO SCH ×2 (09:45→20:44)
[2016-12-10] MEDS: AMLODIPINE BESYLATE 5 MG TABLET PO SCH (09:45)
[2016-12-10] MEDS: GABAPENTIN 100 MG CAPSULE PO SCH ×3 (09:45→20:44)
[2016-12-10] MEDS: POTASSIUM CHLORIDE 10 MEQ TAB.SR PO SCH ×2 (09:45→20:44)
--- NOTE | 2016-12-10 10:51 | PDOC43 ---
- Subjective Chief Complaint: Pancreatitis, new dx DM Awake and alert, sitting up in chair, denies abd pain and states she is hungry. Wants Alejandra out. - Objective Vital Signs Temperature 99.1 F 12/10/16 07:15 Pulse Rate 89 12/10/16 07:15 Respiratory Rate 18 12/10/16 07:22 Blood Pressure 130/78 12/10/16 07:15 O2 Saturation by Pulse Oximetry 96 12/10/16 07:15 Oxygen Delivery Method Room Air Oxygen Flow Rate 0 Intake and Output 12/09/16 12/10/16 12/11/16 06:59 06:59 06:59 Intake Total 2839 2456 Output Total 3050 1925 Balance -211 531 General: Alert, Cooperative, No Acute Distress HEENT: Mucous membr. moist/pink Lungs: Clear to Auscultation Bilaterally Cardiovascular: Regular Rate and Rhythm Abdomen: Soft, Normal Bowel Sounds, No Tenderness, No Masses Extremities: Normal Pulses, No Edema Skin: Warm Neurological: Normal Speech Psych/Mental Status: Normal Mood Laboratory 12/08/16 05:30 12/10/16 05:45 12/10/16 12/10/16 12/10/16 06:17 05:45 01:03 POC Capillary Glucose 188 H 194 H Lipase 187 H 12/09/16 12/09/16 12/09/16 20:29 17:06 12:10 POC Capillary Glucose 226 H 168 H 310 H Lipase Current Medications: Current meds reviewed in EMR. - Problems: Assessment/Plan (1) Pancreatitis Qualifiers: Chronicity: acute Pancreatitis type: idiopathic Acute pancreatitis complication: no infection or necrosis Qualifier Code: (K85.00) Idiopathic acute pancreatitis without necrosis or infection Status: AcuteAssessment/ Plan: Acute idiopathic pancreatitis with SIRS but not sepsis (no infection) present on admit. Symptoms resolved, advance diet as tolerated. (2) ALBERT (acute kidney injury) Status: AcuteAssessment/Plan: Due to acute pancreatitis and DKA, Resolved. (3) Diabetes mellitus, new onset Status: ChronicAssessment/Plan: With acute diabetic ketoacidosis present on admit. Chronic uncontrolled diabetes with A1c of 13.7% High insulin resistance requiring 5-6 units per hour. Some degree of endocrine failure of the pancreas due to pancreatitis present as C-peptide is mildly low. Started lantus insulin 3/3 p.m. and aspart correction doses, adjust as indicated. Start scheduled prandial aspart today. (4) Anemia Status: AcuteAssessment/Plan: Mild due to IVF dilution. (5) Morbid obesity with BMI of 40.0-44.9, adult Status: ChronicAssessment/Plan: Complicates care of diabetes, heart failure, and contributes to poor wound healing from lipoma excision. (6) Heart failure Qualifiers: Heart failure type: diastolic Heart failure chronicity: chronic Qualifier Code: (I50.32) Chronic diastolic (congestive) heart failure Status : ChronicAssessment/Plan: Chronic diastolic failure with pulmonary HTN (not cor pulmaonale) stable without exacerbation at this time. (7) HTN (hypertension) Qualifiers: Hypertension type: essential hypertension Qualifier Code: (I10) Essential (primary) hypertension Status: ChronicAssessment/Plan: Well controlled. (8) Acute metabolic encephalopathy Status: AcuteAssessment/Plan: Due to acute pancreatitis and DKA, present on admit, Head CT normal on 12/09. Encephalopathy appears resolved today. (9) Lipomatosis Status: ChronicAssessment/Plan: Patient with chronic marked lipomatosis. Delayed healing by secondary intention on back. Wound present on admit and continues to improve. VTE Prophylaxis: enoxaparin Disposition: Anticipate SNF 12/11. Additional Comments:
[2016-12-10] MEDS: HYDROCODONE BIT/ACETAMINOPHEN 10 MG/325 MG TAB PO PRN (11:09)
[2016-12-10] MEDS: PANTOPRAZOLE 40 MG TABLET DR PO SCH (11:14)
[2016-12-10] MEDS: INSULIN GLARGINE (DOSE) 100 UNITS/ML UNIT SUB-Q SCH (20:43)
[2016-12-11] MEDS: INSULIN ASPART (DOSE) 100 UNITS/1 ML SUB-Q SCH ×9 (00:23→22:06)
--- NOTE | 2016-12-11 08:09 | PDOC43 ---
- Subjective Chief Complaint: Pancreatitis, new dx DM Eating a full meal but reports epigastric pain radiating to back. - Objective Vital Signs Temperature 98.2 F 12/11/16 07:54 Pulse Rate 83 12/11/16 07:54 Respiratory Rate 20 12/11/16 07:54 Blood Pressure 132/71 12/11/16 07:54 O2 Saturation by Pulse Oximetry 100 12/11/16 07:54 Oxygen Delivery Method Room Air Oxygen Flow Rate 0 Intake and Output 12/10/16 12/11/16 12/12/16 06:59 06:59 06:59 Intake Total 2456 4067 Output Total 1925 2631 Balance 531 1436 General: Alert, Oriented x3, Cooperative, Mild Distress HEENT: Mucous membr. moist/pink Lungs: Clear to Auscultation Bilaterally Cardiovascular: Regular Rate and Rhythm Abdomen: Soft, Tenderness (mild), Normal Bowel Sounds, No Masses Extremities: Normal Pulses, No Edema Skin: Normal Color Neurological: Normal Speech Psych/Mental Status: Anxious Laboratory 12/08/16 05:30 12/10/16 05:45 12/11/16 12/11/16 12/10/16 06:20 00:14 20:46 POC Capillary Glucose 185 H 315 H 264 H 12/10/16 12/10/16 17:22 11:12 POC Capillary Glucose 178 H 166 H Current Medications: Current meds reviewed in EMR. - Problems: Assessment/Plan (1) Pancreatitis Qualifiers: Chronicity: acute Pancreatitis type: idiopathic Acute pancreatitis complication: no infection or necrosis Qualifier Code: (K85.00) Idiopathic acute pancreatitis without necrosis or infection Status: AcuteAssessment/ Plan: Acute idiopathic pancreatitis with SIRS but not sepsis (no infection) present on admit. Symptoms resolved and diet advanced 12/10 but has sx again today. Check labs and hold food. (2) ALBERT (acute kidney injury) Status: AcuteAssessment/Plan: Due to acute pancreatitis and DKA, Resolved. (3) Diabetes mellitus, new onset Status: ChronicAssessment/Plan: With acute diabetic ketoacidosis present on admit. Chronic uncontrolled diabetes with A1c of 13.7% High insulin resistance requiring 5-6 units per hour when on drip. Some degree of endocrine failure of the pancreas due to pancreatitis present as C-peptide is mildly low. Started lantus insulin 3/3 p.m. and aspart correction doses, adjust as indicated. Started scheduled prandial aspart 12/10. (4) Anemia Status: AcuteAssessment/Plan: Mild due to IVF dilution. (5) Morbid obesity with BMI of 40.0-44.9, adult Status: ChronicAssessment/Plan: Complicates care of diabetes, heart failure, and contributes to poor wound healing from lipoma excision. (6) Heart failure Qualifiers: Heart failure type: diastolic Heart failure chronicity: chronic Qualifier Code: (I50.32) Chronic diastolic (congestive) heart failure Status : ChronicAssessment/Plan: Chronic diastolic failure with pulmonary HTN (not cor pulmaonale) stable without exacerbation at this time. (7) HTN (hypertension) Qualifiers: Hypertension type: essential hypertension Qualifier Code: (I10) Essential (primary) hypertension Status: ChronicAssessment/Plan: Well controlled. (8) Acute metabolic encephalopathy Status: AcuteAssessment/Plan: Due to acute pancreatitis and DKA, present on admit, Head CT normal on 12/09. Encephalopathy appears resolved as of 12/09. (9) Lipomatosis Status: ChronicAssessment/Plan: Patient with chronic marked lipomatosis. Delayed healing by secondary intention on back. Wound present on admit and continues to improve. VTE Prophylaxis: enoxaparin Disposition: Anticipate SNF but may have to delay discharge due to recurrent sx. Additional Comments:
[2016-12-11 08:26] LABS: HEMATOCRIT 35.1 % (37.0-47.0); HEMOGLOBIN 10.9 gm/l (12.0-16.0); MEAN CELL VOLUME 85.2 fl (81.0-99.0); MEAN CORPUSCULAR HEMOGLOBIN 26.5 pg (27.0-31.0); MEAN CORPUSCULAR HGB CONC 31.1 g/dl (33.0-37.0); RED CELL DISTRIBUTION WIDTH 20.5 % (11.5-14.5)
[2016-12-11] MEDS: CARVEDILOL 6.25 MG TABLET PO SCH ×2 (08:28→21:49)
[2016-12-11] MEDS: GABAPENTIN 100 MG CAPSULE PO SCH ×3 (08:29→21:50)
[2016-12-11] MEDS: FUROSEMIDE 40 MG TABLET PO SCH ×2 (08:29→16:12)
[2016-12-11] MEDS: HYDROCODONE BIT/ACETAMINOPHEN 10 MG/325 MG TAB PO PRN ×3 (08:29→21:49)
[2016-12-11] MEDS: AMLODIPINE BESYLATE 5 MG TABLET PO SCH (08:29)
[2016-12-11] MEDS: PANTOPRAZOLE 40 MG TABLET DR PO SCH (08:29)
[2016-12-11] MEDS: POTASSIUM CHLORIDE 10 MEQ TAB.SR PO SCH (08:30)
[2016-12-11 08:50] LABS: CALCIUM 9.7 mg/dL (8.6-10.3)
[2016-12-11] MEDS ORDERED: SODIUM CHLOR 0.45%/KCL 20 MEQ 1,000 ML IV SCH (09:42)
[2016-12-11] MEDS ORDERED: PUMP TUBING ONE (10:12)
[2016-12-11] MEDS: INSULIN GLARGINE (DOSE) 100 UNITS/ML UNIT SUB-Q SCH (21:49)
[2016-12-11] MEDS: POTASSIUM CHLORIDE 20 MEQ TAB.PRT.SR PO SCH (21:49)
[2016-12-12] MEDS: INSULIN ASPART (DOSE) 100 UNITS/1 ML SUB-Q SCH ×4 (03:30→08:03)
[2016-12-12 05:57] LABS: CALCIUM 9.8 mg/dL (8.6-10.3)
[2016-12-12 07:35] VITALS: BP 135/89
[2016-12-12] MEDS: GABAPENTIN 100 MG CAPSULE PO SCH (08:01)
[2016-12-12] MEDS: FUROSEMIDE 40 MG TABLET PO SCH (08:02)
[2016-12-12] MEDS: PANTOPRAZOLE 40 MG TABLET DR PO SCH (08:02)
[2016-12-12] MEDS: POTASSIUM CHLORIDE 20 MEQ TAB.PRT.SR PO SCH (08:03)
[2016-12-12] MEDS: CARVEDILOL 6.25 MG TABLET PO SCH (08:03)
[2016-12-12] MEDS: AMLODIPINE BESYLATE 5 MG TABLET PO SCH (08:03)
[2016-12-12] MEDS ORDERED: INSULIN ASPART (DOSE) 100 UNITS/1 ML SUB-Q SCH (09:00)
--- NOTE | 2016-12-12 12:45 | PDOC5 ---
ADMIT DATE: 12/06/16 DISCHARGE DATE: 12/12/16 ADMISSION DIAGNOSES: Pancreatitis Diabetic Ketoacidosis Discharge Diagnoses: Pancreatitis Diabetic Ketoacidosis DM II, uncontrolled. New diagnosis Hypertension Lipomatosis with multiple resections Diastolic CHF with preserved EF Migraines Eczema PROCEDURES PERFORMED THIS HOSPITALIZATION: None CONSULTATIONS: None HOSPITAL COURSE: This is a 51 year old female who presented to the emergency department for confusion following 4 days of nausea, diarrhea and abdominal pain. She was found to have an elevated lipase with CT exam indicating acute pancreatitis. Further studies revealed a glucose of 871. She was admitted to the hospital and placed on an insulin infusion and copious IVF. With the pancreatitis, it took several days before she could tolerate PO intake. Her A1c was found to be 13.7. She did have an acute kidney injury with creatinine reaching 1.8 but subsequently improved to 0.7 with hydration. Her chronic medical conditions were managed per her usual routine. Her abdominal pain improved and her diet was advanced. She worked with the dieticians and diabetic teaching was initiated. She is being discharged home with prescriptions for metformin and glyburide to follow-up with her PCP on 12/14/2016. - Exam Vital Signs Temperature 98.0 F 12/12/16 07:34 Pulse Rate 81 12/12/16 07:34 Respiratory Rate 16 12/12/16 08:00 Blood Pressure 135/89 12/12/16 07:34 O2 Saturation by Pulse Oximetry 99 12/12/16 07:34 Oxygen Delivery Method Room Air Oxygen Flow Rate 0 General: Alert, Oriented x3, Cooperative, Other (mrobidly obese), No Acute Distress HEENT: Atraumatic, PERRLA, EOMI, Mucous membr. moist/pink Lungs: Clear to Auscultation Bilaterally, Normal Air Movement, Other (no crackle or wheeze) Cardiovascular: Regular Rate and Rhythm, Normal S1, Normal S2 Abdomen: Soft, Mild Distention, No Rigid, No Tenderness, No Rebounding Extremities: No Cyanosis, No Edema, No Tenderness Peripheral Pulses: Radial (L): 2+, Radial (R): 2+ Neurological: Normal Speech Psych/Mental Status: Normal Mood - Results Laboratory 12/11/16 08:10 12/12/16 05:15 12/12/16 12/12/16 12/11/16 07:43 05:15 21:48 POC Capillary Glucose 234 H 274 H Lipase 124 H 12/11/16 12:46 POC Capillary Glucose 262 H Lipase Laboratory Tests 12/06/16 12/07/16 12/07/16 15:03 05:15 16:00 Glucose 871 H* Hemoglobin A1c 13.7 H Triglycerides 344 H Cholesterol 185 Cholesterol Risk Factr 4.7 LDL Cholesterol 77 VLDL Cholesterol 69 H HDL Cholesterol 39 L Amylase 555 H Lipase 1780 H 2317 H 1514 H 12/08/16 12/09/16 12/10/16 05:30 05:30 05:45 Glucose Hemoglobin A1c Triglycerides Cholesterol Cholesterol Risk Factr LDL Cholesterol VLDL Cholesterol HDL Cholesterol Amylase 232 H Lipase 606 H 172 H 187 H 12/11/16 12/12/16 08:10 05:15 Glucose Hemoglobin A1c Triglycerides Cholesterol Cholesterol Risk Factr LDL Cholesterol VLDL Cholesterol HDL Cholesterol Amylase Lipase 191 H 124 H Imaging Results: CT Abdomen/Pelvis: Acute pancreatitis, no evidence of pancreatic necrosis. Hepatic steatosis. Fibroid uterus. Adrenal adenomas. US abdomen: No gallbladder wall thickening or cholethiasis. Mild biliary dilatation. CT Head: No acute intracranial process - Problems:Assessment/Plan (1) ALBERT (acute kidney injury) Status: AcuteAssessment/Plan: Due to acute pancreatitis and DKA, Resolved. (2) Acute metabolic encephalopathy Status: AcuteAssessment/Plan: Due to acute pancreatitis and DKA, present on admit, Head CT normal on 12/09. Encephalopathy appears resolved as of 12/09. (3) Pancreatitis Qualifiers: Chronicity: acute Pancreatitis type: idiopathic Acute pancreatitis complication: no infection or necrosis Qualifier Code: (K85.00) Idiopathic acute pancreatitis without necrosis or infection Status: AcuteAssessment/ Plan: Acute idiopathic pancreatitis with SIRS but not sepsis (no infection) present on admit. Symptoms resolved and diet advanced 12/10 but has sx again today. Check labs and hold food. Patient with minimal pain, tolerating diet and bowel movements. (4) Anemia Qualifiers: Other causes of anemia: other cause, not classified Status: Acute Assessment/Plan: Mild due to IVF dilution. (5) Diabetes mellitus, new onset Status: ChronicAssessment/Plan: With acute diabetic ketoacidosis present on admit. Chronic uncontrolled diabetes with A1c of 13.7% High insulin resistance requiring 5-6 units per hour when on drip. Some degree of endocrine failure of the pancreas due to pancreatitis present as C-peptide is mildly low. Started lantus insulin 3/3 p.m. and aspart correction doses, adjust as indicated. Started scheduled prandial aspart 3/5. Patient met with dieticians and started teaching. Recommend outpatient diabetic teaching. She feels comfortable with use of glucometer. Will DC home with oral medications and she has F/U with PCP in 2 days (6) HTN (hypertension) Qualifiers: Hypertension type: essential hypertension Qualifier Code: (I10) Essential (primary) hypertension Status: ChronicAssessment/Plan: Well controlled. (7) Heart failure Qualifiers: Heart failure type: diastolic Heart failure chronicity: chronic Qualifier Code: (I50.32) Chronic diastolic (congestive) heart failure Status : ChronicAssessment/Plan: Chronic diastolic failure with pulmonary HTN (not cor pulmaonale) stable without exacerbation at this time. (8) Lipomatosis Status: ChronicAssessment/Plan: Patient with chronic marked lipomatosis. Delayed healing by secondary intention on back. Wound present on admit and continues to improve. (9) Morbid obesity with BMI of 40.0-44.9, adult Status: ChronicAssessment/Plan: Complicates care of diabetes, heart failure, and contributes to poor wound healing from lipoma excision. - Disposition: Disposition: Anticipate SNF but may have to delay discharge due to recurrent sx. - Discharge Plan Prescriptions: Glyburide [Diabeta] 5 mg PO DAILY #30 tab Metformin HCl [Glucophage] 1,000 mg PO BID #60 tablet Follow-Up: [facility] [Outside] ([facility] will be in contact with you to set up appointments for RN, P.T. and O.T.) Buffy Patel FNP [Primary Care Provider] - 12/14/16 9:15 am Condition: Stable Disposition: Home
== END 2016-12-12 12:45 | disposition home health service (06) | DRG 438 ==
LOC: ED 14:31 → MS 16:39 → ICU 16:53 → MS 12-09 13:18 → UNDODISIN 12-11 15:20
PROVIDERS: ADMIT Family Medicine; ATTEND Family Medicine
DX: K85.90 Acute pancreatitis without necrosis or infection, unspecified (principal); E13.10 Other specified diabetes mellitus with ketoacidosis without coma; G93.41 Metabolic encephalopathy; I50.30 Unspecified diastolic (congestive) heart failure; N17.9 Acute kidney failure, unspecified; Z68.41 Body mass index [BMI] 40.0-44.9, adult; I11.0 Hypertensive heart disease with heart failure; G43.909 Migraine, unspecified, not intractable, without status migrainosus; L30.9 Dermatitis, unspecified; K85.00 Idiopathic acute pancreatitis without necrosis or infection; D64.9 Anemia, unspecified; E66.01 Morbid (severe) obesity due to excess calories; K76.0 Fatty (change of) liver, not elsewhere classified; D25.9 Leiomyoma of uterus, unspecified; D35.00 Benign neoplasm of unspecified adrenal gland

== ENCOUNTER 2017-01-17 14:53 | Outpatient (CLI) | payer OTHER | END 2017-01-17 14:54 | disposition home or self-care (01) | LOC: NC 14:53 | PROVIDERS: ATTEND Nurse Practitioner Family | DX: E11.65 Type 2 diabetes mellitus with hyperglycemia (principal); Z71.3 Dietary counseling and surveillance; K85.90 Acute pancreatitis without necrosis or infection, unspecified; Z68.41 Body mass index [BMI] 40.0-44.9, adult; K85.00 Idiopathic acute pancreatitis without necrosis or infection ==